=== PATIENT | male | born 1960 | race Caucasian/White ===

== ENCOUNTER 2024-03-21 16:32 | Emergency (ER) | payer MEDICAID, OTHER ==
[2024-03-21 18:19] LABS: BASOPHILS ABSOLUTE AUTO 0.05 K/uL (0.00-0.10); BASOPHILS PERCENT AUTO 1.1 % (0.1-1.3); EOSINOPHILS ABSOLUTE AUTO 0.04 K/uL (0.00-0.40); EOSINOPHILS PERCENT AUTO 0.9 % (0.0-5.4); HEMATOCRIT 48.5 % (38.4-49.7); HEMOGLOBIN 16.8 g/dL (12.9-16.9); IMMATURE GRAN PERCENT AUTO 0.4 % (0.0-0.7); LYMPHOCYTES ABSOLUTE AUTO 0.79 K/uL (0.8-3.3); MEAN CORPUSCULAR HEMOGLOBIN 29.6 pg (31.6-35.5); MEAN CORPUSCULAR HGB CONC 34.6 g/dL (31.6-35.5); MEAN CORPUSCULAR VOLUME 85.4 fL (81.4-99.0); MONOCYTES ABSOLUTE AUTO 0.71 K/uL (0.20-0.90); MONOCYTES PERCENT AUTO 15.2 % (3.3-12.6); NEUTROPHILS ABSOLUTE AUTO 3.05 K/uL (1.0-7.6); NEUTROPHILS PERCENT AUTO 65.4 % (40.0-78.1); PLATELET COUNT,PLT 189 K/uL (130-375); RED BLOOD CELL COUNT 5.68 M/uL (4.14-5.76); WHITE BLOOD CELL COUNT,WBC 4.7 K/uL (3.2-11.0)
[2024-03-21 18:20] LABS: IMMATURE GRAN ABSOLUTE AUTO 0.02 K/uL (0.00-0.23)
[2024-03-21 18:42] LABS: INR 1.1; PROTHROMBIN TIME 11.1 sec (9.2-10.6); PTT,PARTIAL THROMBOPLSTIN TIME 27.9 sec (21.8-27.3)
[2024-03-21 18:46] LABS: A/G RATIO 0.9 (1.2-2.2); ALANINE AMINOTRANSFERASE,ALT 43 U/L (12-78); ALBUMIN 3.6 g/dL (3.4-5.0); ALKALINE PHOSPHATASE 76 U/L (46-116); ASPARTATE AMNIOTRANSFERASE,AST 27 U/L (15-37); BILIRUBIN TOTAL 0.6 mg/dL (0.2-1.0); BLOOD UREA NITROGEN,BUN 15 mg/dL (7-18); CALCIUM 8.9 mg/dL (8.5-10.1); CARBON DIOXIDE,CO2 24 mmol/L (21-32); CHLORIDE,CL 99 mmol/L (100-108); CREATININE 1.3 mg/dL (0.8-1.3); EST CRCL DRUG DOSING (CG) 62.75 mL/min; ESTIMATED GFR 62 mL/min (>60); GLUCOSE RANDOM 112 mg/dL (74-106); MAGNESIUM 1.8 mg/dL (1.8-2.4); PHOSPHORUS 2.7 mg/dL (2.5-4.9); POTASSIUM,K 3.7 mmol/L (3.6-5.2); PROTEIN TOTAL,TP 7.7 g/dL (6.4-8.2); SODIUM,NA 134 mmol/L (140-148); TROPONIN I HIGH SENSITIVITY 15.9 pg/mL (<=60.3)
[2024-03-21 18:47] LABS: ANION GAP 14.7 mmol/L (5.0-14.0)
[2024-03-21] MEDS: Acetaminophen 500 MG Tab PO ONE (19:27)
[2024-03-21] MEDS: Meclizine 25 MG Tab PO ONE (19:27)
[2024-03-21] MEDS: LORazepam 1 MG Tab PO ONE (19:27)
[2024-03-21] MEDS: Ketorolac 15 MG/ML SDV IVPUSH ONE (20:10)
[2024-03-21] MEDS: Prochlorperazine 10 MG/2 ML SDV IVPUSH ONE (20:11)
[2024-03-21] MEDS: diphenhydrAMINE 50 MG/ML SDV IVPUSH ONE (20:11)
[2024-03-21] MEDS: Sodium Chloride 0.9% 1,000 ML IV SCH (20:24)
[2024-03-21] MEDS: Amoxicillin 500 MG Cap PO ONE (20:50)
== END 2024-03-21 21:34 | disposition home or self-care (01) ==
LOC: JP.ED 16:32
DX: J18.9 Pneumonia, unspecified organism (principal); I10 Essential (primary) hypertension; Z88.8 Allergy status to other drugs, medicaments and biological substances; Z87.891 Personal history of nicotine dependence
CPT/HCPCS: 36415; 70450; 71046; 80053; 83605; 83735; 84100; 84484; 85025; 85610; 85730; 93005; 96361; 96374; 96375; 99285; A9270; J0780; J1200; J1885; J7030; 93010; 99283